=== PATIENT | female | born 2005 | race African-American/Black ===

== ENCOUNTER 2024-07-03 17:57 | Emergency (ER) | payer MEDICAID ==
[~2024-07-03] VITALS: Ht 165.1 cm; Wt 69.0 kg
[2024-07-03 17:58] VITALS: O2SAT 97
[2024-07-03 18:00] VITALS: BP 105/55; PULSE 111; RESP 16; TEMP 99; O2SAT 99
== END 2024-07-03 18:20 | disposition left against medical advice (07) ==
LOC: ER 17:57
DX: R05.9 Cough, unspecified (principal); Z53.21 Procedure and treatment not carried out due to patient leaving prior to being seen by health care provider